=== PATIENT | female | born 1985 | race Caucasian/White ===

== ENCOUNTER → 2017-07-25 13:20 | Outpatient (REF) | payer OTHER, SELFPAY | LOC: LAB 13:20 | PROVIDERS: Family Provider Otolaryngology Facial Plastic Surgery; PCP Otolaryngology Facial Plastic Surgery; Visit Provider Otolaryngology Facial Plastic Surgery | DX: J32.9 Chronic sinusitis, unspecified (principal) | CPT/HCPCS: 87070; 87075; 87205 ==